=== PATIENT | male | born 1940 | race Two or more races ===

== ENCOUNTER 2021-10-31 13:07 | Day surgery (SDC) | payer OTHER, MEDICAID ==
[2021-10-29 11:51] LABS: Basophils # (auto) 0.1 10 ^3/uL (0-0.2); Basophils % (auto) 1.3 % (0.0-2.0); Eosinophils # (auto) 0.2 10 ^3/uL (0-0.8); Eosinophils % (auto) 2.7 % (0.0-7.0); Hematocrit 33.9 % (41.0-53.0); Hemoglobin 11.4 g/dL (13.5-17.5); Lymphocytes % (auto) 18.6 % (10.0-50.0); Mean Corpuscular Hgb Conc. 33.5 g/dL (32.0-36.0); Mean Corpuscular Volume 89.6 fL (80.0-100.0); Monocytes # (auto) 0.4 10 ^3/uL (0-1.3); Monocytes % (auto) 7.9 % (0.0-12.0); Neutrophils # (auto) 3.9 10 ^3/uL (1.6-8.6); Neutrophils % (auto) 69.5 % (37.0-80.0); Nucleated Red Blood Cells % 0.1 %; Red Blood Cells 3.79 10^6/uL (4.5-5.90); Red Cell Distribution Width 15.4 % (11.8-14.3); White Blood Cell 5.6 10^3/uL (4.4-10.8)
[2021-10-29 12:11] LABS: INR 1.12 (0.9-1.15); Partial Thromboplastin Time 30.4 sec (23.6-33.0)
[2021-10-29 12:34] LABS: Potassium 3.8 mmol/L (3.5-5.1)
[2021-10-29 12:42] LABS: Albumin 3.3 g/dL (3.4-5.0); BUN/Creatinine Ratio 25.4; Calcium 8.9 mg/dL (8.5-10.1)
[2021-10-29 12:44] LABS: Bilirubin, Total 0.9 mg/dL (0.2-1.0); Total Protein 7.1 g/dL (6.4-8.2)
[~2021-10-31] VITALS: Ht 175.3 cm; Wt 81.6 kg
[~2021-10-31 13:07] MED LIST: ALEN70TA74 PO; ASCOGRA OR; ASPI1TAB20 PO; ATOR20TA PO; CARV12.544 PO; CHOL20004 PO; FERR-7 PO; FURO1TAB32 PO; GLIM4TAB42 PO; INSU1INJ19 SC; LEVO75TA6 PO; LOSA-69 PO; METO2.5T PO; OMEP20TA PO; POTA-220 PO; SUCR1TAB22 PO; TAMS1CAP25 PO
[2021-10-31] MEDS ORDERED: fentaNYL CITRATE 100 MCG/2 ML VL ONE (13:14)
[2021-10-31] MEDS ORDERED: MIDAZOLAM HCL 5 MG/ML-1ML VIAL ONE (13:14)
[2021-10-31] MEDS ORDERED: SODIUM CHLORIDE LOCK 10 ML ONE (13:14)
[2021-10-31] MEDS ORDERED: diphenhdrAMINE HCL 50 MG/1 ML VL ONE (13:14)
[2021-10-31] MEDS ORDERED: LIDOCAINE VISCOUS 2% 15ML UD ONE (13:23)
[2021-10-31 14:30] VITALS: BP 145/72
== END 2021-10-31 14:30 | disposition home or self-care (01) ==
LOC: GI 13:07
PROVIDERS: ATTEND Internal Medicine Gastroenterology
DX: D62 Acute posthemorrhagic anemia (principal); K27.4 Chronic or unspecified peptic ulcer, site unspecified, with hemorrhage; K29.50 Unspecified chronic gastritis without bleeding; K44.9 Diaphragmatic hernia without obstruction or gangrene; I13.0 Hypertensive heart and chronic kidney disease with heart failure and stage 1 through stage 4 chronic kidney disease, or unspecified chronic kidney disease; I50.9 Heart failure, unspecified; E11.22 Type 2 diabetes mellitus with diabetic chronic kidney disease; N18.9 Chronic kidney disease, unspecified; E03.9 Hypothyroidism, unspecified; I25.10 Atherosclerotic heart disease of native coronary artery without angina pectoris; Z86.73 Personal history of transient ischemic attack (TIA), and cerebral infarction without residual deficits; Z87.11 Personal history of peptic ulcer disease; Z85.46 Personal history of malignant neoplasm of prostate; Z79.82 Long term (current) use of aspirin; Z87.891 Personal history of nicotine dependence; Z95.0 Presence of cardiac pacemaker; Z86.2 Personal history of diseases of the blood and blood-forming organs and certain disorders involving the immune mechanism; Z20.822 Contact with and (suspected) exposure to COVID-19
CPT/HCPCS: 36415; 43239; 80053; 85025; 85610; 85730; 88305; 88342; J1200; J2250; J3010; J7030; U0003

== ENCOUNTER → 2021-12-23 | Outpatient (CLI) | payer OTHER, MEDICAID | END | disposition home or self-care (01) | LOC: XYW 10:03 | PROVIDERS: ATTEND Internal Medicine | DX: I08.3 Combined rheumatic disorders of mitral, aortic and tricuspid valves (principal); I11.0 Hypertensive heart disease with heart failure; I50.22 Chronic systolic (congestive) heart failure | CPT/HCPCS: 93306 ==

== ENCOUNTER → 2022-02-10 | Outpatient (CLI) | payer OTHER, MEDICAID ==
[~2022-02-10] VITALS: Ht 172.7 cm; Wt 80.7 kg
[~2022-02-10] MED LIST changes: +ADENOSINE 68 MG in GIVE UN-DILUTED 0 ML IV STA
[2022-02-10 10:10] VITALS: BP 134/75
== END | disposition home or self-care (01) ==
LOC: XYW 08:27
PROVIDERS: ATTEND Internal Medicine
DX: I13.0 Hypertensive heart and chronic kidney disease with heart failure and stage 1 through stage 4 chronic kidney disease, or unspecified chronic kidney disease (principal); I50.22 Chronic systolic (congestive) heart failure; N18.31 Chronic kidney disease, stage 3a; I25.10 Atherosclerotic heart disease of native coronary artery without angina pectoris; R06.00 Dyspnea, unspecified; E78.5 Hyperlipidemia, unspecified; E11.22 Type 2 diabetes mellitus with diabetic chronic kidney disease; D63.8 Anemia in other chronic diseases classified elsewhere; Z79.4 Long term (current) use of insulin; Z95.5 Presence of coronary angioplasty implant and graft
CPT/HCPCS: 78452; 93017; A9500; J0153

== ENCOUNTER 2022-07-29 08:28 | Day surgery (SDC) | payer OTHER, MEDICAID ==
[2022-07-28 11:05] LABS: Basophils # (auto) 0.1 10 ^3/uL (0-0.2); Basophils % (auto) 0.8 % (0.0-2.0); Eosinophils # (auto) 0.2 10 ^3/uL (0-0.8); Eosinophils % (auto) 2.9 % (0.0-7.0); Hematocrit 35.1 % (41.0-53.0); Hemoglobin 11.8 g/dL (13.5-17.5); Lymphocytes # (auto) 1.4 10 ^3/uL (0.4-5.4); Lymphocytes % (auto) 18.4 % (10.0-50.0); Mean Corpuscular Hemoglobin 30.4 pg (28.0-32.0); Mean Corpuscular Hgb Conc. 33.5 g/dL (32.0-36.0); Mean Corpuscular Volume 90.6 fL (80.0-100.0); Monocytes # (auto) 0.7 10 ^3/uL (0-1.3); Monocytes % (auto) 9.7 % (0.0-12.0); Neutrophils # (auto) 5.1 10 ^3/uL (1.6-8.6); Neutrophils % (auto) 68.2 % (37.0-80.0); Red Blood Cells 3.87 10^6/uL (4.5-5.90); Red Cell Distribution Width 13.4 % (11.8-14.3); White Blood Cell 7.4 10^3/uL (4.4-10.8)
[2022-07-28 11:20] LABS: Partial Thromboplastin Time 28.9 sec (24.6-33.4)
[2022-07-28 12:24] LABS: Albumin 3.5 g/dL (3.4-5.0); BUN/Creatinine Ratio 46.8; Bilirubin, Total 0.7 mg/dL (0.2-1.0); Calcium 8.7 mg/dL (8.5-10.1); Total Protein 7.4 g/dL (6.4-8.2)
[2022-07-28 12:31] LABS: Potassium 2.5 mmol/L (3.5-5.1)
[~2022-07-29] VITALS: Ht 180.3 cm; Wt 77.1 kg
[~2022-07-29 08:28] MED LIST changes: -ADENOSINE 68 MG in GIVE UN-DILUTED 0 ML IV STA
[2022-07-29] MEDS ORDERED: IODIXANOL 320MG/ML 100ML BTL IV ONE ×2 (09:59→10:51)
[2022-07-29] MEDS ORDERED: LIDOCAINE 2%HCL (LOCAL ANESTH.) INJ 20ML MDV ONE (10:00)
[2022-07-29] MEDS ORDERED: VERAPAMIL 2.5MG/ML INJ 2ML VIAL IV ONE (10:02)
[2022-07-29] MEDS ORDERED: fentaNYL CITRATE 100 MCG/2 ML VL ONE (10:02)
[2022-07-29] MEDS ORDERED: HEPARIN SODIUM (PORCINE) 5000 UNITS/ML 1ML VIAL ONE (10:02)
[2022-07-29] MEDS ORDERED: ANGIOMAX 250 MG VIAL IV ONE (10:02)
[2022-07-29] MEDS ORDERED: SODIUM CHL 0.9% 50 ML ONE (10:03)
[2022-07-29] MEDS ORDERED: MIDAZOLAM HCL 2MG/2ML 2ml VIAL (1mg/ml) ONE (10:03)
[2022-07-29] MEDS ORDERED: PHENYLEPHRINE HCL 10 MG/ML VL ONE (10:30)
[2022-07-29] MEDS ORDERED: NOREPINEPHRINE 8 MG/250ML KIT 0 ML IV ONE (10:32)
[2022-07-29] MEDS ORDERED: ASPirin 325 MG TAB ONE (11:05)
[2022-07-29] MEDS ORDERED: CLOPIDOGREL 300 MG TAB ONE (11:05)
== END 2022-07-29 14:20 | disposition home or self-care (01) ==
LOC: CATH 08:28
PROVIDERS: ATTEND Internal Medicine
DX: I25.10 Atherosclerotic heart disease of native coronary artery without angina pectoris (principal); I11.0 Hypertensive heart disease with heart failure; I50.22 Chronic systolic (congestive) heart failure; E03.9 Hypothyroidism, unspecified; E11.9 Type 2 diabetes mellitus without complications; N40.0 Benign prostatic hyperplasia without lower urinary tract symptoms; Z79.899 Other long term (current) drug therapy; Z79.01 Long term (current) use of anticoagulants; Z20.822 Contact with and (suspected) exposure to COVID-19
CPT/HCPCS: 36415; 80053; 85025; 85610; 85730; 93458; C1725; C1769; C1874; C1887; C1894; C9600; J0583; J1644; J2250; J2370; J3010; Q9967; U0003; 99152; 99153

== ENCOUNTER → 2022-07-30 | Outpatient (CLI) | payer OTHER, MEDICAID ==
[2022-07-30 10:36] LABS: Albumin 3.4 g/dL (3.4-5.0); Potassium 3.2 mmol/L (3.5-5.1)
[2022-07-30 10:41] LABS: Bilirubin, Total 0.7 mg/dL (0.2-1.0); Calcium 8.9 mg/dL (8.5-10.1)
== END | disposition home or self-care (01) ==
LOC: LAB 09:11
PROVIDERS: ATTEND Internal Medicine
DX: I50.22 Chronic systolic (congestive) heart failure (principal)
CPT/HCPCS: 36415; 80053

== ENCOUNTER → 2022-08-03 | Outpatient (CLI) | payer OTHER, MEDICAID ==
[2022-08-03 10:17] LABS: Potassium 3.5 mmol/L (3.5-5.1)
[2022-08-03 10:33] LABS: Albumin 3.2 g/dL (3.4-5.0); BUN/Creatinine Ratio 30.1; Bilirubin, Total 0.5 mg/dL (0.2-1.0); Calcium 8.4 mg/dL (8.5-10.1); Total Protein 6.5 g/dL (6.4-8.2)
== END | disposition home or self-care (01) ==
LOC: LAB 08:45
PROVIDERS: ATTEND Internal Medicine
DX: I10 Essential (primary) hypertension (principal)
CPT/HCPCS: 36415; 80053

== ENCOUNTER → 2023-07-06 | Outpatient (CLI) | payer OTHER, MEDICAID ==
[~2023-07-06] MED LIST changes: -LOSA-69 PO; +LOSA50TA46 PO
[2023-07-06 11:31] LABS: Basophils # (auto) 0.1 10 ^3/uL (0-0.2); Eosinophils # (auto) 0.3 10 ^3/uL (0-0.8); Eosinophils % (auto) 5.2 % (0.0-7.0); Hematocrit 34.8 % (41.0-53.0); Hemoglobin 11.5 g/dL (13.5-17.5); Lymphocytes # (auto) 1.3 10 ^3/uL (0.4-5.4); Lymphocytes % (auto) 25.6 % (10.0-50.0); Mean Corpuscular Hemoglobin 31.2 pg (28.0-32.0); Mean Corpuscular Hgb Conc. 33.1 g/dL (32.0-36.0); Mean Corpuscular Volume 94.4 fL (80.0-100.0); Monocytes # (auto) 0.5 10 ^3/uL (0-1.3); Monocytes % (auto) 10.5 % (0.0-12.0); Neutrophils # (auto) 2.9 10 ^3/uL (1.6-8.6); Neutrophils % (auto) 57.7 % (37.0-80.0); Red Blood Cells 3.69 10^6/uL (4.5-5.90); Red Cell Distribution Width 13.8 % (11.8-14.3)
[2023-07-06 12:28] LABS: Alanine Aminotransferase 20 U/L (7-40); Albumin 4.2 g/dL (3.2-4.8); Alkaline Phosphatase 71 U/L (46-116); Anion Gap 7 (5-15); Aspartate Aminotransferase 18 U/L (13-40); BUN/Creatinine Ratio 46.9 (10.0-20.0); Bilirubin, Total 0.8 mg/dL (0.2-1.0); Calcium 9.4 mg/dL (8.5-10.1); Carbon Dioxide 28 mmol/L (20-30); Chloride 108 mmol/L (98-107); Glucose 159 mg/dL (74-106); Potassium 3.8 mmol/L (3.5-5.1); Sodium 143 mmol/L (136-145); Total Protein 7.2 g/dL (5.7-8.2)
[2023-07-06 13:42] LABS: Free T3 2.45 pg/mL (2.3-4.2)
[2023-07-06 13:43] LABS: Free T4 (Free Thyroxine) 1.34 ng/dL (0.89-1.76)
[2023-07-06 14:19] LABS: Blood Urea Nitrogen 91 mg/dL (9-23)
== END | disposition home or self-care (01) ==
LOC: LAB 10:54
PROVIDERS: ATTEND Internal Medicine
DX: I10 Essential (primary) hypertension (principal); E03.9 Hypothyroidism, unspecified; N52.9 Male erectile dysfunction, unspecified; I50.9 Heart failure, unspecified
CPT/HCPCS: 36415; 80053; 83880; 84439; 84443; 84481; 85025

== ENCOUNTER → 2023-11-16 | Outpatient (CLI) | payer OTHER, MEDICAID ==
[~2023-11-16] MED LIST changes: +LOSA-534 PO; -LOSA50TA46 PO; -SUCR1TAB22 PO; +SUCR1TAB31 PO
== END | disposition home or self-care (01) ==
LOC: XYW 07:30
PROVIDERS: ATTEND Internal Medicine
DX: I08.3 Combined rheumatic disorders of mitral, aortic and tricuspid valves (principal); I27.21 Secondary pulmonary arterial hypertension; I25.118 Atherosclerotic heart disease of native coronary artery with other forms of angina pectoris
CPT/HCPCS: 93306

== ENCOUNTER → 2023-11-24 | Outpatient (CLI) | payer OTHER, MEDICAID ==
[~2023-11-24] VITALS: Ht 172.7 cm; Wt 79.4 kg
[2023-11-24] MEDS: ADENOSINE 67 MG in GIVE UN-DILUTED 0 ML IV ONE (09:58)
== END | disposition home or self-care (01) ==
LOC: XYW 08:22
PROVIDERS: ATTEND Student in an Organized Health Care Education/Training Program
DX: I25.811 Atherosclerosis of native coronary artery of transplanted heart without angina pectoris (principal); R06.02 Shortness of breath
CPT/HCPCS: 78452; 93017; A9500; J0153

== ENCOUNTER 2024-12-06 06:57 | Day surgery (SDC) | payer OTHER, MEDICAID ==
[~2024-12-06] VITALS: Ht 175.3 cm; Wt 78.9 kg
[~2024-12-06 06:57] MED LIST changes: +APIX2.5T PO; -ASCOGRA OR; -ASPI1TAB20 PO; -FURO1TAB32 PO; +FURO40TA4 PO; -GLIM4TAB42 PO; +HYDR-4491 PO; -INSU1INJ19 SC; -LEVO75TA6 PO; +LEVO88TA4 PO; -LOSA-534 PO; -OMEP20TA PO; +POTA-180 PO; -POTA-220 PO; +SACU1TAB4 PO; +SITA50TA PO; -SUCR1TAB31 PO
[2024-12-06] MEDS: MIDAZOLAM HCL 2MG/2ML 2ml VIAL (1mg/ml) ONE (08:40)
[2024-12-06] MEDS: fentaNYL CITRATE 100 MCG/2 ML VL ONE (08:40)
[2024-12-06] MEDS: VANCOMYCIN HCL 1000 MG VL ONE ×2 (08:40→09:33)
[2024-12-06] MEDS: LIDOCAINE 2%HCL (LOCAL ANESTH.) INJ 20ML MDV ONE (08:41)
[2024-12-06] MEDS: VANCOMYCIN 1GM/200ML PM 200 ML IV ONE (08:41)
[2024-12-06 10:15] VITALS: BP 147/75; PULSE 76; RESP 12; O2SAT 97
[2024-12-06 10:30] VITALS: BP 144/74; PULSE 60; RESP 12; O2SAT 98
[2024-12-06 10:45] VITALS: BP 146/77; PULSE 60; RESP 12; O2SAT 98
[2024-12-06 11:00] VITALS: BP 153/76; PULSE 62; RESP 12; O2SAT 97
[2024-12-06] MEDS ORDERED: DOXYCYCLINE 100MG/100ML 100 ML IV ONE (11:38)
[2024-12-06] MEDS ORDERED: DOXYCYCLINE 100 MG TAB/CAP ONE (11:38)
[2024-12-06] MEDS: DOXYCYCLINE 100 MG TAB/CAP PO ONE (11:40)
[2024-12-06] MEDS: DOXYCYCLINE 100MG/100ML 100 ML IV ONE (11:41)
[2024-12-06 12:00] VITALS: BP 156/76; PULSE 60; RESP 13; O2SAT 93
[2024-12-06 12:30] VITALS: BP 155/80; PULSE 60; RESP 12; O2SAT 98
--- NOTE | 2024-12-08 15:39 | DVHOP2 ---
Operative Report 12/06/24 Procedure Note Replacement of BIVAICD generator INDICATIONS: 1. KATE of the Biventricular ICD generator. [facility] 2. Cardiomyopathy with prior history of BIVAICD, 3. 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 Conscious sedation with Fentanyl and versed for one hour PROCEDURES: 1. Explantation of the old Biventricular implantable defibrillator generator [facility]. 2. Implantation of the new Biventricular implantable generator [facility]. 3. Fluoroscopy images and interpretation. 4. Interrogation and programming of the device. 5. Conscious sedation with fentanyl and versed for one hour PROCEDURE IN DETAILS: After obtaining informed consent with explanation of risks, benefits, and alternatives, the patient agreed upon the planned procedure, replacement of the biventricular implantable defibrillator generator. Patient understood and agreed the new company is [facility]. Under standard fashion, local and systemic anesthetic, left deltopectoral area was prepped and draped. Left deltopectoral pocket was opened and old biventricular implantable defibrillator from [facility] was removed from the pocket. The new biventricular implantable defibrillator from [facility] was connected to the leads. The pocket was irrigated with antibiotic solution. Antibiotic powder was poured into the pocket. The skin was closed in 2 layers and at the end was stapled. Atrial lead, LV lead and RV lead connected to new BIVAICD generator. CONCLUSION: Status post successful replacement of the biventricular implantable defibrillator secondary to end of life of the biventricular implantable defibrillator. RECOMMENDATIONS: Continue with antibiotic therapy, doxycycline 100 mg twice a day. MARCOS FELIZ MD Dec 08, 2024 15:39
--- NOTE | 2024-12-12 07:48 | ECG ---
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
== END 2024-12-06 13:05 | disposition home or self-care (01) ==
LOC: CATH 06:57
PROVIDERS: ATTEND Specialist
DX: Z45.02 Encounter for adjustment and management of automatic implantable cardiac defibrillator (principal); I25.5 Ischemic cardiomyopathy; I11.0 Hypertensive heart disease with heart failure; I50.9 Heart failure, unspecified; Z79.890 Hormone replacement therapy; Z79.899 Other long term (current) drug therapy; Z87.891 Personal history of nicotine dependence
CPT/HCPCS: 33264; 93005; C1882; J2250; J3010; J3370; J3490; J7050; 99152; 99153